=== PATIENT | female | born 2005 | race Caucasian/White ===

== ENCOUNTER 2023-11-24 14:19 | Emergency (ER) | payer MEDICAID ==
[~2023-11-24] VITALS: Ht 157.5 cm; Wt 85.6 kg
[2023-11-24 14:19] VITALS: TEMP 97.4
[2023-11-24 14:40] VITALS: BP 121/80; RESP 18; O2SAT 98
[2023-11-24] MEDS ORDERED: PRED20TA2 PO (18:59)
[2023-11-24] MEDS ORDERED: ACET500T58 PO (18:59)
[2023-11-24] MEDS ORDERED: ALBUAER3 IN (18:59)
[2023-11-24 19:35] VITALS: PULSE 77
== END 2023-11-24 19:00 | disposition home or self-care (01) ==
LOC: ER 14:19
DX: J06.9 Acute upper respiratory infection, unspecified (principal); R07.89 Other chest pain; F12.10 Cannabis abuse, uncomplicated
CPT/HCPCS: 93005